=== PATIENT | male | born 1975 | race African-American/Black ===

== ENCOUNTER → 2019-12-09 | Outpatient (CLI) | payer OTHER ==
--- NOTE | 2019-12-09 15:55 | Diagnostic Imaging Report ---
TECHNIQUE: Magnetic resonance imaging of the RIGHT SHOULDER was performed WITHOUT injected contrast. COMPARISON: None available. HISTORY: Right shoulder rotator cuff tear, shoulder pain FINDINGS: MUSCLES AND TENDONS: Rotator Cuff: Tendons: Supraspinatus: Tendinosis with low-grade bursal sided partial-thickness tearing along the anterior fibers. Infraspinatus: Tendinosis without discrete tear. Teres Minor: Intact Subscapularis: Tendinosis with low-grade interstitial tearing. Muscles: No focal muscle atrophy. Biceps Tendon: The long head of the biceps tendon is intact and within the intertubercular groove. Tendinosis along the intra-articular portion without discrete tear. GLENOHUMERAL JOINT: Glenoid Labrum: Fraying and attenuation at the posterior superior labrum without discrete tear. Articular Cartilage: No focal defect. AC JOINT AND ACROMION: Mild hypertrophic degenerative changes of the acromioclavicular joint with small subacromial osseous spurring. Otherwise, acromion is unremarkable. BONE: No specific evidence of a focal or infiltrative bone marrow replacing abnormality. No acute fracture. Small reactive subchondral cystic changes at the greater tuberosity. SOFT TISSUES: Thickening along the inferior glenohumeral ligament and soft tissue fullness within the rotator cuff interval. IMPRESSION: 1. Rotator cuff tendinosis with low-grade bursal sided partial-thickness tearing of the supraspinatus tendon. Additional low-grade interstitial tearing of the subscapularis tendon. 2. Tendinosis along the intra-articular portion of the biceps tendon without discrete tear. 3. Fraying and attenuation at the posterosuperior labrum without discrete displaced tear. 4. Mild hypertrophic degenerative changes of the acromioclavicular joint. 5. Thickened inferior glenohumeral ligament and soft tissue fullness at the rotator cuff interval, can be seen with adhesive capsulitis. Signed by: Dr. Lupillo Bryan M.D. on 12/09/2019 3:51 PM
== END ==
LOC: MRI 13:33
PROVIDERS: ATTEND Specialist
DX: M75.101 Unspecified rotator cuff tear or rupture of right shoulder, not specified as traumatic (principal)

== ENCOUNTER → 2020-05-26 | Day surgery (SDC) | payer OTHER ==
[2020-05-24 08:44] LABS: ANION GAP 13.6 mmol/L (8-16); BLOOD UREA NITROGEN 22 mg/dL (7-26); BUN/CREATININE RATIO 21 (6-25); CALCIUM 9.8 mg/dL (8.4-10.2); CARBON DIOXIDE 29 mmol/L (22-29); CHLORIDE 100 mmol/L (98-107); CREATININE, SERUM 1.07 mg/dL (0.72-1.25); EST GLOMERULAR FILTRATION RATE > 60 ML/MIN (60-); GLUCOSE 113 mg/dL (74-118); POTASSIUM 3.6 mmol/L (3.5-5.1); SODIUM 139 mmol/L (136-145)
[~2020-05-26] MED LIST: BUPIVACAINE HCL 0.5% INJ 30 ML VIAL INJ ONE; CEFAZOLIN SOD 1 GM/NS 50ML 100 ML IV ONE; DEXAMETHASONE SOD PHOS INJ 4 MG/ML VIAL ONE; EPINEPHRINE 1 MG/ML 30ML VIAL ONE; EPINEPHRINE HCL 1:1000 1ML 1 MG/ML AMP ONE; ETOMIDATE 2 MG/ML 10 ML INJ IV ONE; GLYCOPYRROLATE INJ 0.2 MG/ML VIAL ONE; HYGROTON25 MG PO; LIDOCAINE HCL 2% JELLY 5 ML TUBE ONE; NAPROXEN250 MG PO; NEOSTIGMINE 1 MG/ML 10ML VIAL ONE; ONDANSETRON HCL INJ 2MG/ML 2ML 2 MG/ML VIAL ONE; PROPOFOL IV EMULSION 10 MG/ML 20 ML VIAL ONE; ROCURONIUM BROMIDE 10 MG/ML 5ML VIAL IV ONE; SEVOFLURANE INHAL SOLN 250 ML PEN BTL ONE; ZESTRIL10 MG PO
[2020-05-26 12:00] VITALS: BP 134/71
== END | disposition home or self-care (01) ==
LOC: OR 05:54
PROVIDERS: ATTEND Specialist
DX: M75.111 Incomplete rotator cuff tear or rupture of right shoulder, not specified as traumatic (principal); M19.011 Primary osteoarthritis, right shoulder; M75.01 Adhesive capsulitis of right shoulder; M24.611 Ankylosis, right shoulder; G47.33 Obstructive sleep apnea (adult) (pediatric); I10 Essential (primary) hypertension; Z01.810 Encounter for preprocedural cardiovascular examination; Z01.812 Encounter for preprocedural laboratory examination; Z20.822 Contact with and (suspected) exposure to COVID-19
CPT/HCPCS: 29822; 29826; 36415; 80048; 93005; J0171; J0690; J1100; J2001; J2405; J2704; J2710; U0002